=== PATIENT | male | born 1995 | race Caucasian/White ===

== ENCOUNTER 2019-01-27 11:42 | Emergency (ER) | payer SELFPAY ==
[2019-01-27] MEDS ORDERED: KETOROLAC 30 MG/ML INJ ONE (12:24)
[2019-01-27] MEDS ORDERED: ONDANSETRON 4 MG/2 ML VIAL ONE (12:24)
[2019-01-27] MEDS ORDERED: NA CHLORIDE 0.9% 1,000 ML ONE (12:24)
[2019-01-27 12:31] LABS: Absolute Lymphocytes (CBC) 2.7 K/uL (0.7-4.9); Basophils % 1.1 % (0-1.3); Hematocrit 42.9 % (39.6-49.0); Lymphocytes % 49.8 % (15.3-44.8); MPV 7.5 fL (7.6-11.3); RBC Red Blood Cell Count 4.44 M/uL (4.33-5.43)
[2019-01-27 12:43] LABS: Bilirubin Direct 0.1 mg/dL (0-0.2); Bilirubin Total 0.4 mg/dL (0.2-1.0); Potassium 4.1 mmol/L (3.5-5.1); Protein, Total 7.1 g/dL (6.4-8.2)
--- NOTE | 2019-01-27 13:41 | RAD REPORT ---
EXAM DESCRIPTION: CTAbdomen Pelvis W Contrast - 01/27/2019 1:32 pm CLINICAL HISTORY: Abdominal pain. ABD PAIN COMPARISON: <Comparisons> TECHNIQUE: Biphasic CT imaging of the abdomen and pelvis was performed with 100 ml non-ionic IV cont rast. All CT scans are performed using dose optimization technique as appropriate and may include automated exposure control or mA/KV adjustment according to patient size. FINDINGS: The lung bases are clear. The liver, spleen, pancreas, adrenal glands and kidneys are within normal limits. No bowel obstruction, free air, free fluid or abscess. The appendix is normal. No evidence of signi ficant lymphadenopathy. No suspicious bony findings. IMPRESSION: No acute intra-abdominal or pelvic finding.
--- NOTE | 2019-01-27 14:12 | EDPHYS ---
Physician Documentation [facility] Name: Amrit Reeves Age: 24 yrs Sex: Male : 1995 Arrival Date: 01/27/2019 Time: 11:44 Bed 13 Private MD: ED Physician Kalyan Agrawal HPI: 01/27 13:54 This 24 yrs old Male presents to ER via Ambulatory with complaints of kb Abdominal Pain, Diarrhea, Headache. 13:54 The patient presents with abdominal pain that is diffuse. Onset: The symptoms/episode kb began/occurred 4 day(s) ago. The symptoms do not radiate. Associated signs and symptoms: Pertinent positives: diarrhea. The symptoms are described as intermittent. Modifying factors: The symptoms are alleviated by nothing, the symptoms are aggravated by pressure. Severity of pain: At its worst the pain was moderate in the emergency department the pain is unchanged. The patient has not experienced similar symptoms in the past. The patient has not recently seen a physician. Historical: - Allergies: 11:58 No Known Allergies; aj1 - Home Meds: 11:58 None [Active]; aj1 - PMHx: 11:58 Migraines; aj1 - PSHx: 11:58 knee reconstruction; aj1 - Immunization history:: Flu vaccine is not up to date. - Social history:: Smoking status: Patient uses tobacco products, smokes one-half pack cigarettes per day. - Ebola Screening: : Patient denies travel to an Ebola-affected area in the 21 days before illness onset. ROS: 13:53 Constitutional: Negative for fever, chills, and weight loss, Cardiovascular: Negative kb for chest pain, palpitations, and edema, Respiratory: Negative for shortness of breath, cough, wheezing, and pleuritic chest pain, Back: Negative for injury and pain, : Negative for injury, bleeding, discharge, and swelling, MS/Extremity: Negative for injury and deformity, Skin: Negative for injury, rash, and discoloration, Neuro: Negative for headache, weakness, numbness, tingling, and seizure. 13:53 Abdomen/GI: Positive for abdominal pain, nausea, vomiting, and diarrhea. Exam: 13:53 Constitutional: This is a well developed, well nourished patient who is awake, alert, kb and in no acute distress. Head/Face: Normocephalic, atraumatic. Neck: Trachea midline, no thyromegaly or masses palpated, and no cervical lymphadenopathy. Supple, full range of motion without nuchal rigidity, or vertebral point tenderness. No Meningismus. Chest/axilla: Normal chest wall appearance and motion. Nontender with no deformity. No lesions are appreciated. Cardiovascular: Regular rate and rhythm with a normal S1 and S2. No gallops, murmurs, or rubs. Normal PMI, no JVD. No pulse deficits. Respiratory: Lungs have equal breath sounds bilaterally, clear to auscultation and percussion. No rales, rhonchi or wheezes noted. No increased work of breathing, no retractions or nasal flaring. Back: No spinal tenderness. No costovertebral tenderness. Full range of motion. Skin: Warm, dry with normal turgor. Normal color with no rashes, no lesions, and no evidence of cellulitis. MS/ Extremity: Pulses equal, no cyanosis. Neurovascular intact. Full, normal range of motion. Neuro: Awake and alert, GCS 15, oriented to person, place, time, and situation. Cranial nerves II-XII grossly intact. Motor strength 5/5 in all extremities. Sensory grossly intact. Cerebellar exam normal. Normal gait. 13:53 Abdomen/GI: Inspection: abdomen appears normal, Bowel sounds: normal, in all quadrants, Palpation: soft, moderate abdominal tenderness, in all quadrants. Vital Signs: 11:58 BP 123 / 74; Pulse 71; Resp 18; Temp 98.4; Pulse Ox 98% on R/A; Weight 80.74 kg (R); aj1 Height 6 ft. 2 in. (187.96 cm) (R); 14:04 BP 100 / 74; Pulse 66; Resp 18; Pulse Ox 100% on R/A; ae4 14:40 BP 92 / 69; Pulse 65; Resp 16; Pulse Ox 99% on R/A; ae4 11:58 Body Mass Index 22.85 (80.74 kg, 187.96 cm) aj1 MDM: 12:00 Patient medically screened. kb 13:53 Data reviewed: vital signs, nurses notes. Data interpreted: Pulse oximetry: on room air kb is 98 %. Interpretation: normal. Counseling: I had a detailed discussion with the patient and/or guardian regarding: the historical points, exam findings, and any diagnostic results supporting the discharge/admit diagnosis, lab results, radiology results, the need for outpatient follow up, a family practitioner, to return to the emergency department if symptoms worsen or persist or if there are any questions or concerns that arise at home. 01/27 12:09 Order name: Basic Metabolic Panel; Complete Time: 12:43 kb 01/27 12:09 Order name: CBC with Diff; Complete Time: 12:40 kb 01/27 12:09 Order name: Hepatic Function; Complete Time: 12:43 kb 01/27 12:09 Order name: Lipase; Complete Time: 12:43 kb 01/27 13:08 Order name: Glucose, Ancillary Testing; Complete Time: 13:09 EDMS 01/27 13:09 Order name: CT Abd/Pelvis - IV Contrast Only; Complete Time: 13:50 kb 01/27 12:09 Order name: IV Saline Lock; Complete Time: 12:20 kb 01/27 12:09 Order name: Labs collected and sent; Complete Time: 12:20 kb Administered Medications: 12:25 Drug: NS 0.9% 1000 ml Route: IV; Rate: 1000 ml; Site: right antecubital; ae4 13:00 Follow up: IV Status: Completed infusion ae4 12:25 Drug: Zofran 4 mg Route: IVP; Site: right antecubital; ae4 13:56 Follow up: Response: No adverse reaction; Nausea is decreased ae4 12:25 Drug: TORadol - Ketorolac 15 mg Route: IVP; Site: right antecubital; ae4 13:56 Follow up: Response: Pain is decreased ae4 Disposition: 01/27/19 14:12 Discharged to Home. Impression: Generalized abdominal pain, Diarrhea, unspecified. - Condition is Stable. - Discharge Instructions: Food Choices to Help Relieve Diarrhea, Adult, Abdominal Pain, Adult, [id number], Diarrhea, Adult, [id number]. - Prescriptions for Bentyl 20 mg Oral Tablet - take 1 tablet by ORAL route every 6 hours As needed; 20 tablet. Zofran 4 mg Oral Tablet - take 1 tablet by ORAL route every 6 hours As needed; 20 tablet. - Medication Reconciliation Form, Thank You Letter, Antibiotic Education, Prescription Opioid Use form. - Follow up: Emergency Department; When: As needed; Reason: Worsening of condition. Follow up: Private Physician; When: 2 - 3 days; Reason: Recheck today's complaints, Continuance of care, Re-evaluation by your physician. Addendum: 01/30/2019 07:12 Co-signature as Attending Physician, Kalyan Agrawal MD I agree with the assessment and c garcía plan of care. Signatures: Dispatcher [employer] EDMS Nataly Rosario, SHIPPING TECHNICIAN-C SHIPPING TECHNICIAN-Quin Perez RN RN aj1 Kalyan Agrawal MD MD cha Elliott, Andrea, RN RN ae4 Corrections: (The following items were deleted from the chart) 01/27 14:44 14:12 01/27/2019 14:12 Discharged to Home. Impression: Generalized abdominal pain; ae4 Diarrhea, unspecified. Condition is Stable. Forms are Medication Reconciliation Form, Thank You Letter, Antibiotic Education, Prescription Opioid Use. Follow up: Emergency Department; When: As needed; Reason: Worsening of condition. Follow up: Private Physician; When: 2 - 3 days; Reason: Recheck today's complaints, Continuance of care, Re-evaluation by your physician. kb
--- NOTE | 2019-01-27 14:12 | ER ---
Nurse's Notes [facility] Name: Amrit Reeves Age: 24 yrs Sex: Male : 1995 Arrival Date: 01/27/2019 Time: 11:44 Bed 13 Private MD: Diagnosis: Generalized abdominal pain;Diarrhea, unspecified Presentation: 01/27 11:56 Presenting complaint: Patient states: "stomach pain and migraine. I've had stomach pain aj1 for 3 to 4 days, along with 3 days of diarrhea" Reports that his headache started this morning, he has a history of migraines, but he doesn't see anyone for them. Reports RUQ and LUQ abdominal pain. Denies vomiting. Denies fever. Transition of care: patient was not received from another setting of care. Onset of symptoms was 2018. Risk Assessment: Do you want to hurt yourself or someone else? Patient reports no desire to harm self or others. Initial Sepsis Screen: Does the patient meet any 2 criteria? No. Patient's initial sepsis screen is negative. Does the patient have a suspected source of infection? Yes: Acute abdominal pain. Care prior to arrival: None. 11:56 Method Of Arrival: Ambulatory aj1 11:56 Acuity: ADA 3 aj1 Triage Assessment: 11:58 General: Appears in no apparent distress. comfortable, Behavior is calm, cooperative, aj1 appropriate for age. Pain: Complains of pain in right upper quadrant and left upper quadrant Pain currently is 7 out of 10 on a pain scale. Neuro: Level of Consciousness is awake, alert, obeys commands. Cardiovascular: Patient's skin is warm and dry. Respiratory: Airway is patent Respiratory effort is even, unlabored, Respiratory pattern is regular, symmetrical. GI: Reports upper abdominal pain. Historical: - Allergies: 11:58 No Known Allergies; aj1 - Home Meds: 11:58 None [Active]; aj1 - PMHx: 11:58 Migraines; aj1 - PSHx: 11:58 knee reconstruction; aj1 - Immunization history:: Flu vaccine is not up to date. - Social history:: Smoking status: Patient uses tobacco products, smokes one-half pack cigarettes per day. - Ebola Screening: : Patient denies travel to an Ebola-affected area in the 21 days before illness onset. Screenin:40 Abuse screen: Denies threats or abuse. Nutritional screening: No deficits noted. ae4 Tuberculosis screening: No symptoms or risk factors identified. Fall Risk None identified. Assessment: 12:10 GI: Bowel sounds present X 4 quads. Abd is soft X 4 quads Abdomen is tender to ae4 palpation X 4 quads. 12:53 Reassessment: Patient requesting food, patient teaching provided on gastrointestinal ae4 pain. Patient states he has "hypiglycemia" and "have to eat all the time". Will continue to monitor and assess glucose. Vital Signs: 11:58 BP 123 / 74; Pulse 71; Resp 18; Temp 98.4; Pulse Ox 98% on R/A; Weight 80.74 kg (R); aj1 Height 6 ft. 2 in. (187.96 cm) (R); 14:04 BP 100 / 74; Pulse 66; Resp 18; Pulse Ox 100% on R/A; ae4 14:40 BP 92 / 69; Pulse 65; Resp 16; Pulse Ox 99% on R/A; ae4 11:58 Body Mass Index 22.85 (80.74 kg, 187.96 cm) aj1 ED Course: 11:44 Patient arrived in ED. as 11:48 [facility]C [facility] kb 11:48 Kalyan Agrawal MD is Attending Physician. kb 11:58 Triage completed. aj1 11:58 Arm band placed on. aj1 11:58 Bed in low position. Call light in reach. Side rails up X 1. Adult w/ patient. Cardiac ae4 monitor on. Pulse ox on. NIBP on. 12:03 Sancho Gonzalez, KENNEDI is Primary Nurse. ae4 12:20 Inserted saline lock: 20 gauge in right antecubital area, using aseptic technique. ae4 Blood collected. 13:32 CT completed. Patient tolerated procedure well. Patient moved back from CT. mw3 13:33 CT Abd/Pelvis - IV Contrast Only In Process Unspecified. EDMS 14:43 No provider procedures requiring assistance completed. IV discontinued, intact, ae4 bleeding controlled, No redness/swelling at site. Pressure dressing applied. Administered Medications: 12:25 Drug: NS 0.9% 1000 ml Route: IV; Rate: 1000 ml; Site: right antecubital; ae4 13:00 Follow up: IV Status: Completed infusion ae4 12:25 Drug: Zofran 4 mg Route: IVP; Site: right antecubital; ae4 13:56 Follow up: Response: No adverse reaction; Nausea is decreased ae4 12:25 Drug: TORadol - Ketorolac 15 mg Route: IVP; Site: right antecubital; ae4 13:56 Follow up: Response: Pain is decreased ae4 Outcome: 14:12 Discharge ordered by . carrie 14:43 Discharged to home ambulatory, with family. ae4 14:43 Condition: stable 14:43 Discharge instructions given to patient, Instructed on discharge instructions, follow up and referral plans. medication usage, Demonstrated understanding of instructions, Prescriptions given X 2. 14:44 Patient left the ED. ae4 Signatures: Dispatcher [employer] EDMS Nataly Rosario, ERIC ARELLANO-Quin Perez, RN RN aj1 Mercedes Peterson Michelle mw3 Sancho Gonzalez RN RN ae4
[2019-01-27 16:25] VITALS: TEMP 98.4
[2019-01-27 16:27] VITALS: BP 92/69; O2SAT 99
== END 2019-01-27 14:44 | disposition home or self-care (01) ==
LOC: ER 11:42
DX: R19.7 Diarrhea, unspecified (principal); F17.210 Nicotine dependence, cigarettes, uncomplicated
CPT/HCPCS: 36415; 74177; 80048; 80076; 82947; 83690; 85025; 96361; 96374; 96375; 99285; J2405; J7030; Q9967

== ENCOUNTER 2022-01-27 11:17 | Emergency (ER) | payer SELFPAY ==
--- OUTSIDE RECORDS SUMMARY | 2022-01-27 11:20 | XMS REPORT | Continuity of Care Document ---
:1995 Author Organization [facility] t Address [address] [place] [address] [address]. [address] [place] [address] Care Team Providers Name Role Phone YOSVANY BRIDGES Attending Clinician Unavailable Problems This patient has no known problems. Allergies, Adverse Reactions, Alerts Allergy Allergy Status Severity Reaction(s) Onset Inactive Treating Comm ents Source Name Type Date Date Clinician NO KNOWN Drug Active [facility] ALLERGIE [facility] Medications This patient has no known medications. Procedures This patient has no known procedures. Encounters Start End Encounter Admission Attending Care Care Encounter Source Date/Time Date/Time Type Type Clinicians Facility Department ID 2018-08-31 2018-08-31 Outpatient [id number] [facility] 09:20:00 09:20:00 YOSVANY root [facility] Results This patient has no known results.
[2022-01-27] MEDS ORDERED: HYDROCODONE/APAP 5/325 MG TAB ONE (12:13)
--- NOTE | 2022-01-27 12:45 | RAD REPORT ---
EXAM DESCRIPTION: RAD - Finger-Thumb Left - 01/27/2022 12:06 pm CLINICAL HISTORY: laceration COMPARISON: No comparisons FINDINGS: Soft tissue swelling is seen affecting the second finger. No acute fracture or radiopaque foreign body seen.
[2022-01-27] MEDS ORDERED: LIDOCAINE 1% MPF 5 ML VIAL ONE (15:55)
[2022-01-27] MEDS ORDERED: BUPIVACAINE 0.5% PF 10 ML VIAL ONE (15:55)
--- NOTE | 2022-01-27 16:56 | EDPHYS ---
Physician Documentation [facility] Name: Amrit Reeves Age: 27 yrs Sex: Male : 1995 Arrival Date: 01/27/2022 Time: 11:18 Bed Treatment Private MD: Kalyan Lauren HPI: 01/27 12:00 This 27 yrs old Male presents to ER via Ambulatory with complaints of Laceration - cp finger. 12:00 The patient or guardian reports injury, a laceration, clean. cp 12:00 The complaints affect the distal phalanx left index finger. Context: The problem was cp sustained at work, resulted from using knife. Onset: The symptoms/episode began/occurred just prior to arrival. Associated signs and symptoms: The patient has no apparent associated signs or symptoms. Historical: - Allergies: 11:39 No Known Allergies; ll1 - PMHx: 11:39 Migraines; ADHD; Hypertensive disorder; ll1 - PSHx: 11:39 knee reconstruction; ll1 - Immunization history:: Client reports receiving the 2nd dose of the Covid vaccine, Last tetanus immunization: unknown. - Social history:: Smoking status: Reported history of juuling and/or vaping. Patient denies any tobacco usage or history of. ROS: 12:05 Constitutional: Negative for body aches, chills, fever, poor PO intake. cp 12:05 Respiratory: Negative for cough, shortness of breath, wheezing. cp 12:05 Abdomen/GI: Negative for abdominal pain, nausea, vomiting, and diarrhea. 12:05 Skin: Positive for laceration(s), of the distal tip of distal phalanx left index finger, partial avulsion of skin and ulna side of nail. 12:05 Neuro: Negative for numbness. 12:05 All other systems are negative. Exam: 12:10 Constitutional: The patient appears in no acute distress, alert, awake, well developed, cp well nourished. 12:10 Head/Face: Normocephalic, atraumatic. cp 12:10 Chest/axilla: Inspection: normal. 12:10 Cardiovascular: Rate: normal. 12:10 Respiratory: the patient does not display signs of respiratory distress, Respirations: normal. 12:10 Musculoskeletal/extremity: Extremities: grossly normal except: noted in the distal tip of distal phalanx left index finger: ROM: full active range of motion, in the left index finger, Perfusion: the extremity is normally perfused throughout, the left index finger Sensation intact. Tendon exam: specific tendon testing normal through active and passive range of motion 12:10 Skin: injury, partial avulsion of skin and ulna side nail of distal tip of distal phalanx left index finger. Vital Signs: 11:40 BP 118 / 66; Pulse 72; Resp 16; Temp 97.0; Pulse Ox 100% ; Weight 77.11 kg; Height 6 ll1 ft. 2 in. (187.96 cm); Pain 4/10; 11:40 Body Mass Index 21.83 (77.11 kg, 187.96 cm) ll1 Laceration: 17:00 Wound Repair of 2.5cm ( 1.0in ) partial avulsion of nail laceration to distal tip of cp distal phalanx left index finger. Skin/tissue flap noted.. Distal neuro/vascular/tendon intact. Anesthesia: Digital block administered with 6 mls of Lido/Marcaine. Wound prep: Moderate cleansing by me, Wound irrigation by me. Skin closed with 7 5-0 Prolene using interrupted sutures and sterile technique. Dressed with non-adherent dressing. Patient tolerated well. MDM: 12:08 Patient medically screened. 16:55 Data reviewed: vital signs, nurses notes, radiologic studies, plain films. cp 16:55 Test interpretation: by ED physician or midlevel provider: plain radiologic studies. cp Counseling: I had a detailed discussion with the patient and/or guardian regarding: the historical points, exam findings, and any diagnostic results supporting the discharge/admit diagnosis, radiology results, the need for outpatient follow up, a family practitioner, to return to the emergency department if symptoms worsen or persist or if there are any questions or concerns that arise at home. Response to treatment: the patient's symptoms have markedly improved after treatment, and as a result, I will discharge patient. 01/27 11:42 Order name: XRAY Finger-Thumb Left; Complete Time: 13:42 01/27 13:42 Interpretation: Report reviewed. 01/27 15:21 Order name: Dressing - Wound; Complete Time: 17:13 cp 01/27 15:21 Order name: Gloves, Sterile; Complete Time: 15:57 cp 11/16 15:21 Order name: Setup Suture Tray; Complete Time: 15:58 cp 01/27 16:50 Order name: Splint - Finger; Complete Time: 17:13 cp 01/27 16:50 Order name: Wound dressing; Complete Time: 17:13 cp Administered Medications: 12:17 Not Given (Patient Refused): HYDROcodone-acetaminophen 5 mg-325 mg 1 tabs PO once eh3 16:56 Drug: Lidocaine (1 %) 10 ml {Note: by c.page.} Volume: 5 ml; Route: Infiltration; ap3 16:56 Drug: Marcaine (bupivacaine) (0.5 %) 10 ml {Note: by c.page.} Volume: 10 ml; Route: ap3 Infiltration; Disposition Summary: 01/27/22 16:55 Discharge Ordered Location: Home cp Problem: new cp Symptoms: have improved cp Condition: Stable cp Diagnosis - Laceration without foreign body of left index finger with damage to nail cp Followup: cp - With: Private Physician - When: 10 - 14 days - Reason: Staple/Suture removal Discharge Instructions: - Discharge Summary Sheet cp - Laceration Care, Adult cp Forms: - Medication Reconciliation Form cp - Thank You Letter cp - Antibiotic Education cp - Prescription Opioid Use cp Prescriptions: - Cephalexin 500 mg Oral Capsule - take 1 capsule by ORAL route every 8 hours for 10 days; 30 capsule; Refills: 0, cp Product Selection Permitted - Diclofenac Sodium 75 mg Oral Tablet Sustained Release - take 1 tablet by ORAL route 2 times per day; 30 tablet; Refills: 0, Product cp Selection Permitted Addendum: 01/30/2022 08:28 Co-signature as Attending Physician, Kalyan Agrawal MD I agree with the assessment and c garcía plan of care. Signatures: Dispatcher [employer] EDKalyan Renteria MD MD cha Page, Corey, PA PA cp Merlyn Conway RN RN ap3 Geo Cabrera RN RN ll1 Imelda Hernández RN eh3
--- NOTE | 2022-01-27 16:56 | ER ---
Nurse's Notes [facility] Name: Amrit Reeves Age: 27 yrs Sex: Male : 1995 Arrival Date: 01/27/2022 Time: 11:18 Bed Treatment Private MD: Diagnosis: Laceration without foreign body of left index finger with damage to nail Presentation: 01/27 11:40 Chief complaint: Patient states: Accidentally cut L hand 2nd digit with knife at work ll1 just [employer]. <2 cm laceration, bleeding controlled with dressing. Coronavirus screen: Vaccine status: Patient reports receiving the 2nd dose of the covid vaccine. Client denies travel out of the [place] in the last 14 days. At this time, the client does not indicate any symptoms associated with coronavirus-19. Ebola Screen: Patient denies travel to an Ebola-affected area in the 21 days before illness onset. Complicating Factors: There are no complicating factors for this patient. Initial Sepsis Screen: Does the patient meet any 2 criteria? No. Patient's initial sepsis screen is negative. Does the patient have a suspected source of infection? Yes: Skin breakdown/wound. Risk Assessment: Do you want to hurt yourself or someone else? Patient reports no desire to harm self or others. Onset of symptoms was January 27, 2022. 11:40 Method Of Arrival: Ambulatory ll1 11:40 Acuity: ADA 4 ll1 Triage Assessment: 11:41 General: Appears uncomfortable, Behavior is cooperative, appropriate for age. Pain: ll1 Complains of pain in left hand Quality of pain is described as aching. Derm: Reports laceration L hand 2nd digit. Musculoskeletal: Circulation, motion, and sensation intact. Capillary refill < 3 seconds. Injury Description: Laceration. Historical: - Allergies: 11:39 No Known Allergies; ll1 - PMHx: 11:39 Migraines; ADHD; Hypertensive disorder; ll1 - PSHx: 11:39 knee reconstruction; ll1 - Immunization history:: Client reports receiving the 2nd dose of the Covid vaccine, Last tetanus immunization: unknown. - Social history:: Smoking status: Reported history of juuling and/or vaping. Patient denies any tobacco usage or history of. Screenin:19 Abuse screen: Denies threats or abuse. Denies injuries from another. Nutritional eh3 screening: No deficits noted. Tuberculosis screening: No symptoms or risk factors identified. Fall Risk None identified. Assessment: 12:19 General: Appears in no apparent distress. uncomfortable, Behavior is calm, cooperative, eh3 appropriate for age. Pain: Complains of pain in left middle finger Pain does not radiate. Pain currently is 5 out of 10 on a pain scale. Neuro: Level of Consciousness is awake, alert, obeys commands, Oriented to person, place, time, situation. Cardiovascular: Capillary refill < 3 seconds Patient's skin is warm and dry. Respiratory: Airway is patent Respiratory effort is even, unlabored, Respiratory pattern is regular, symmetrical. GI: No signs and/or symptoms were reported involving the gastrointestinal system. : No signs and/or symptoms were reported regarding the genitourinary system. EENT: No signs and/or symptoms were reported regarding the EENT system. Derm: No signs and/or symptoms reported regarding the dermatologic system. Musculoskeletal: Circulation, motion, and sensation intact. Range of motion: intact in all extremities. Injury Description: Laceration is clean, bleeding controlled. 12:23 Reassessment: Pt refused PO analgesic, stated, "They'll probably need to numb the area eh3 when they stitch it up but I don't need pain medicine". 13:30 Reassessment: Patient and/or family updated on plan of care and expected duration. Pain eh3 level reassessed. Patient is alert, oriented x 3, equal unlabored respirations, skin warm/dry/pink. 14:30 Reassessment: Patient and/or family updated on plan of care and expected duration. Pain eh3 level reassessed. Patient is alert, oriented x 3, equal unlabored respirations, skin warm/dry/pink. Vital Signs: 11:40 BP 118 / 66; Pulse 72; Resp 16; Temp 97.0; Pulse Ox 100% ; Weight 77.11 kg; Height 6 ll1 ft. 2 in. (187.96 cm); Pain 4/10; 11:40 Body Mass Index 21.83 (77.11 kg, 187.96 cm) ll1 ED Course: 11:18 Patient arrived in ED. as 11:24 Kalyan Bishop PA is PHCP. cp 11:24 Kalyan Agrawal MD is Attending Physician. cp 11:38 Arm band placed on. ll1 11:41 Triage completed. ll1 12:05 XRAY Finger-Thumb Left In Process Unspecified. EDMS 12:11 Imelda Hernández, RN is Primary Nurse. eh3 12:19 Patient has correct armband on for positive identification. Adult w/ patient. Pulse ox eh3 on. 17:39 No provider procedures requiring assistance completed. Patient did not have IV access ap3 during this emergency room visit. Administered Medications: 12:17 Not Given (Patient Refused): HYDROcodone-acetaminophen 5 mg-325 mg 1 tabs PO once eh3 16:56 Drug: Lidocaine (1 %) 10 ml {Note: by c.page.} Volume: 5 ml; Route: Infiltration; ap3 16:56 Drug: Marcaine (bupivacaine) (0.5 %) 10 ml {Note: by c.page.} Volume: 10 ml; Route: ap3 Infiltration; Medication: 17:40 VIS not applicable for this client. ap3 Outcome: 16:55 Discharge ordered by MD. cp 17:39 Discharged to home ambulatory, with family. ap3 17:39 Condition: good 17:39 Discharge instructions given to patient, family, Instructed on discharge instructions, follow up and referral plans. medication usage, wound care, Demonstrated understanding of instructions, follow-up care, medications, Prescriptions given X 2. 17:40 Patient left the ED. ap3 Signatures: Dispatcher [employer] EDMS Mercedes Peterson Corey, Merlyn Garcia cp, RN RN ap3 Geo Cabrera RN RN 1 Imelda Hernández, KENNEDI RN [facility]
[2022-01-27 18:14] VITALS: BP 118/66; TEMP 97; O2SAT 100
== END 2022-01-27 17:40 | disposition home or self-care (01) ==
LOC: ER 11:17
PROC: 0JQK0ZZ Repair Left Hand Subcutaneous Tissue and Fascia, Open Approach (ICD-10-PCS; principal; 2022-01-27)
DX: S61.311A Laceration without foreign body of left index finger with damage to nail, initial encounter (principal)
CPT/HCPCS: 99284; J2001